=== PATIENT | female | born 1985 | race Two or more races ===

== ENCOUNTER 2024-06-30 07:53 | Emergency (ER) | payer OTHER ==
[~2024-06-30] VITALS: Ht 167.6 cm; Wt 59.0 kg
[2024-06-30] MEDS ORDERED: CEFTRIAXONE SODIUM 1,000 MG VIAL ONE (08:52)
[2024-06-30] MEDS ORDERED: CEFTRIAXONE SODIUM 1,000 MG VIAL IM ONE (09:00)
[2024-06-30 09:30] LABS: HEMOGLOBIN 12.8 g/dL (12.0-15.00); MEAN CELL VOLUME 89.7 fL (80.00-100.00); MEAN CORPUSCULAR HEMOGLOBIN 30.2 pg (27.00-32.0); MEAN CORPUSCULAR HGB CONC 33.6 g/dl (32.0-36.0); PLATELET COUNT 430 K/uL (150-450); RED BLOOD COUNT 4.23 M/uL (4.00-6.00); RED CELL DISTRIBUTION WIDTH 13.7 % (11.5-14.5)
[2024-06-30 09:58] LABS: PH,URINE 6.5 (5.0-8.0); URINE APPEARANCE Cloudy; URINE BILIRRUBIN Negative (NEGATIVE); URINE BLOOD Moderate; URINE COLOR Yellow; URINE GLUCOSE Negative (NEGATIVE); URINE KETONE Negative (NEGATIVE); URINE LEUKOCYTE Large; URINE NITRATE Negative; URINE PROTEIN Negative (NEGATIVE); URINE UROBILINOGEN 0.2 E.U./dl
[2024-06-30 09:59] LABS: URINE BACTERIA 74.6 uL (0.0-1933); URINE RBC 130.6 uL (0.0-20.8)
[2024-06-30 10:06] LABS: URINE CAST 0.14 uL (0.0-1.40)
[2024-06-30] MEDS ORDERED: CEPHALEXIN500 MG PO (10:13)
[2024-06-30] MEDS ORDERED: BUTALB/ACETAMINOPHEN/CAFFEINE 1 TAB TABLET PO ONE ×2 (10:14→10:15)
[2024-06-30] MEDS ORDERED: BUTALBIT-ACETA1 EACH PO (10:19)
== END 2024-06-30 13:16 | disposition home or self-care (01) ==
LOC: ER 07:54
PROVIDERS: General Practice
DX: N39.0 Urinary tract infection, site not specified (principal); Z88.6 Allergy status to analgesic agent